=== PATIENT | female | born 1940 | race Caucasian/White ===

== ENCOUNTER → 2022-06-19 08:15 | Outpatient (CLI) | payer MEDICARE, SELFPAY ==
[2022-06-19 09:39] LABS: Add Manual Diff / Slide Review NO; Basophils Absolute Auto 100 /uL (0-100); Basophils Percent Auto 1.5 % (0-2); Eosinophils Absolute Auto 100 /uL (0-450); Eosinophils Percent Auto 2.6 % (2-4); Hematocrit 39.8 % (36-46); Hemoglobin 13.4 g/dL (12.0-16.0); Lymphocytes Absolute Auto 1700 /uL (1100-4500); Lymphocytes Percent Auto 31.9 % (25-40); Mean Corpuscular HGB Conc 33.7 % (30-36); Mean Corpuscular Hemoglobin 28.5 PG (26-34); Mean Corpuscular Volume 84.6 fL (80-100); Monocytes Absolute Auto 400 /uL (0-900); Monocytes Percent Auto 8.3 % (3-14); Neutrophils Absolute Auto 2900 /uL (1500-7000); Neutrophils Percent Auto 55.7 % (50-75); Platelet Count 184 X10^3/uL (150-400); Red Cell Distribution Width 14.7 % (11.6-14.8); White Blood Cell Count 5.2 X10^3/uL (4.5-11.0)
[2022-06-19 10:03] LABS: BUN Creatinine Ratio 26.3 (6-22); Blood Urea Nitrogen 21 mg/dL (7-17); Calcium 9.1 mg/dL (8.4-10.2); Carbon Dioxide 30 mmol/L (22-32); Chloride 103 mmol/L (98-107); Estimated Glomerular Filt Rate > 60 mL/min (>60); Glucose 90 mg/dL (80-110); HEMOLYSIS < 15 (0-50); Potassium 4.5 mmol/L (3.4-5.1); Sodium 139 mmol/L (137-145)
[2022-06-19 10:26] LABS: Appearance Urine UA CLEAR; Bilirubin Urine UA NEGATIVE (NEGATIVE); Color Urine UA YELLOW; Glucose Urine UA NEGATIVE (Negative); Ketones Urine UA NEGATIVE (NEGATIVE); Leukocyte Esterase Urine UA 2+ (NEGATIVE); Nitrite Urine UA NEGATIVE (Negative); Occult Blood Urine UA NEGATIVE (Negative); Protein Urine UA NEGATIVE (Negative); Urobilinogen Urine UA 0.2 E.U./dL (0.2)
[2022-06-19 11:08] LABS: Bacteria Urine Occasional (0-1); Culture Indicated Urine Specimen Cultured; RBC Urine 0-1/HPF (0-5/HPF); Squamous Epithelial Cell Urine 1-5 /HPF (0-5/HPF); Transitional Epi Cells Urine 1-5/HPF (0-5/HPF); WBC Urine 5-10/HPF (0-5/HPF)
[2022-06-20 05:32] LABS: x Labcorp Estim. Avg Glu (eAG) 117 mg/dL (.); x Labcorp Hemoglobin A1c 5.7 % (4.8-5.6)
== END ==
PROVIDERS: PCP Family Medicine; Referring Provider Orthopaedic Surgery; Visit Provider Orthopaedic Surgery
DX: Z01.818 Encounter for other preprocedural examination (principal); R73.9 Hyperglycemia, unspecified; Z01.812 Encounter for preprocedural laboratory examination; N39.0 Urinary tract infection, site not specified
CPT/HCPCS: 36415; 80048; 81001; 83036; 85025; 87086; 93005

== ENCOUNTER → 2023-09-24 08:18 | Outpatient (CLI) | payer MEDICARE, SELFPAY ==
[2023-09-24 08:55] LABS: Add Manual Diff / Slide Review NO; Basophils Absolute Auto 100 /uL (0-100); Basophils Percent Auto 1.4 % (0-2); Eosinophils Absolute Auto 200 /uL (0-450); Eosinophils Percent Auto 2.7 % (2-4); Hematocrit 40.7 % (36-46); Hemoglobin 13.6 g/dL (12.0-16.0); Lymphocytes Absolute Auto 2100 /uL (1100-4500); Lymphocytes Percent Auto 35.7 % (25-40); Mean Corpuscular HGB Conc 33.5 % (30-36); Mean Corpuscular Hemoglobin 28.6 PG (26-34); Mean Corpuscular Volume 85.2 fL (80-100); Monocytes Absolute Auto 500 /uL (0-900); Monocytes Percent Auto 7.9 % (3-14); Neutrophils Absolute Auto 3000 /uL (1500-7000); Neutrophils Percent Auto 52.3 % (50-75); Platelet Count 196 X10^3/uL (150-400); Red Blood Cell Count 4.78 X10^6/uL (4.0-5.2); Red Cell Distribution Width 14.8 % (11.6-14.8); White Blood Cell Count 5.8 X10^3/uL (4.5-11.0)
[2023-09-24 09:02] LABS: Hemoglobin A1C% w Est Avg Glu 5.3 % (4.0-6.0)
[2023-09-24 09:19] LABS: Alanine Aminotransferase 13 IU/L (<35); Albumin 4.4 g/dL (3.5-5.0); Albumin Globulin Ratio 2.2 (1.0-2.8); Alkaline Phosphatase 77 U/L (38-126); Aspartate Aminotransferase 21 IU/L (14-36); BUN Creatinine Ratio 24.4 (6-22); Bilirubin Total 0.6 mg/dL (0.2-1.3); Blood Urea Nitrogen 20 mg/dL (7-17); Calcium 9.4 mg/dL (8.4-10.2); Carbon Dioxide 28 mmol/L (22-32); Chloride 107 mmol/L (98-107); Cholesterol 262 mg/dL (140-199); Estimated Glomerular Filt Rate > 60 mL/min (>60); Glucose 95 mg/dL (80-110); HDL Cholesterol 63 mg/dL (40-60); HEMOLYSIS < 15 (0-50); LDL Cholesterol Calculated 155 mg/dL (<100); Potassium 4.3 mmol/L (3.4-5.1); Sodium 140 mmol/L (137-145); Total Protein 6.4 g/dL (6.3-8.2); Triglycerides 218 mg/dL (35-150)
== END ==
PROVIDERS: PCP Family Medicine; Referring Provider Family Medicine; Visit Provider Family Medicine
DX: A69.20 Lyme disease, unspecified (principal); R73.01 Impaired fasting glucose; E78.5 Hyperlipidemia, unspecified; I10 Essential (primary) hypertension; I20.89 Other forms of angina pectoris
CPT/HCPCS: 36415; 80053; 80061; 83036; 85025

== ENCOUNTER → 2023-10-02 08:05 | Outpatient (CLI) | payer MEDICARE, SELFPAY ==
--- NOTE | 2023-10-02 08:06 | DI.ECHO.S_ITS ---
[place] [facility]+ [facility] : : [address] : : [place] : : [id number] : : Phone: [phone] Echocardiogram Report + + :Name: GUILLAUME MERIDA Study Date: 10/02/2023 Height: 64 in : :[facility] ReadingLocation: Weight: 160 lb : : Gender: Female BSA: 1.8 m2 : :: 1940 Age: 82 yrs BP: 188/90 mmHg: :Reason For Study: ESSENTIAL HYPERTENSION, DYSPNEA ON EXERTION : :Ordering Physician: JOSEFA, : :CAITLIN Performed By: Thomas Vines : :Referring: CAITLIN RIVERO : + + Interpretation Summary 1. The left ventricular contractility is normal. Estimated ejection fraction is greater than 55% with no segmental wall motion abnormalities. Mild concentric left ventricular hypertrophy. No diastolic dysfunction. 2. The right ventricular contractility is normal. 3. Biatrial enlargement noted. The left ventricle and right ventricle are of normal size. 4. No significant valvular abnormalities noted. 5. No obvious cardiac shunts. 6. No obvious intracardiac masses nor thrombi. 7. No hemodynamically significant pericardial effusion. 8. Low normal right-sided filling pressures. Conclusion: Normal biventricular systolic function with no significant valvular abnormalities. Procedure: A two-dimensional transthoracic echocardiogram with color flow and Doppler was performed. The study quality was technically adequate. There is no prior echocardiogram noted for this patient. The heart rate ranged between 59-77 bpm during the study. Left Ventricle: The left ventricle is normal in size. Left ventricular wall thickness is mildly increased. The ejection fraction is estimated to be 55- 60%. Right Ventricle: The right ventricle is normal size. The right ventricular systolic function is normal. Atria: The left atrium is moderately dilated. The right atrium is mildly dilated. The interatrial septum grossly appears intact with no obvious evidence for an atrial septal defect. Mitral Valve: The mitral valve is normal. There is no mitral valve stenosis. There is trace mitral regurgitation. Aortic Valve: The aortic valve is trileaflet. There is no aortic valve stenosis. There is trace aortic regurgitation. Tricuspid Valve: The tricuspid valve is normal. There is no tricuspid stenosis. No tricuspid regurgitation. Pulmonic Valve: The pulmonic valve is not well visualized. There is no pulmonic valvular stenosis. There is no pulmonic valvular regurgitation. Great Vessels: The aortic root is normal size. The dimensions of the ascending aorta are normal. The IVC is of normal diameter and collapses greater than 50% with a sniff. This suggests a low right atrial pressure of 3 mm Hg. Pericardium/ Pleura There is no pericardial effusion. There is no pleural effusion. MMode/2D Measurements & Calculations LVIDd: 5.4 cm LVOT diam: 2.0 cm LVIDs: 3.7 cm Ao root diam: 2.9 cm FS: 31.4 % asc Aorta Diam: 2.9 cm IVSd: 1.3 cm Ao Arch Diam (Prox Trans): 2.2 cm LVPWd: 1.2 cm LV kraft. diameter/BSA (cm/m^2): 3.1 LV sys. diameter/BSA (cm/m^2): 2.1 LA A2 area: 24.5 cm2 RA long axis: 5.2 cm LA A4 area: 25.9 cm2 RA area: 18.0 cm2 LA length (vol): 6.5 cm RA vol: 52.4 ml LA vol: 82.8 ml RA : 29.5 ml/m2 LA vol index: 46.5 ml/m2 IVC diam: 1.4 cm RVD1 (basal): 3.5 cm RVD2 (mid): 2.8 cm TAPSE: 2.8 cm Doppler Measurements & Calculations Ao V2 max: 168.0 cm/sec LVOT Max Sergey: 121.6 cm/sec Ao V2 mean: 110.6 cm/sec LV V1 max P.9 mmHg Ao max P.3 mmHg LV V1 VTI: 28.5 cm Ao mean P.6 mmHg IRLANDA(I,D): 2.2 cm2 Ao V2 VTI: 40.8 cm IRLANDA(V,D): 2.3 cm2 sev ratio: 0.70 IRLANDA indexed to BSA (cm^2/m^2): 1.2 MV E max sergey: 122.1 cm/sec PA V2 max: 92.1 cm/sec MV A max esrgey: 121.6 cm/sec PA V2 mean: 64.5 cm/sec MV E/A: 1.0 PA mean P.8 mmHg Med Peak E' Sergey: 7.1 cm/sec PA pr(Accel): 51.6 mmHg E/E' med: 17.2 Lat Peak E' Sergey: 9.2 cm/sec E/E' lat: 13.3 E/e' average: 15.3 MV dec time: 0.22 sec SV(LVOT): 88.5 ml Reading Physician:
== END ==
PROVIDERS: PCP Family Medicine; Referring Provider Family Medicine; Visit Provider Family Medicine
DX: I10 Essential (primary) hypertension (principal); E78.5 Hyperlipidemia, unspecified; R06.09 Other forms of dyspnea
CPT/HCPCS: 93306

== ENCOUNTER → 2024-11-19 08:31 | Outpatient (CLI) | payer MEDICARE, SELFPAY ==
[2024-11-19 09:06] LABS: Hematocrit 40.8 % (36-46); Hemoglobin 13.6 g/dL (12.0-16.0); Mean Corpuscular HGB Conc 33.4 % (30-36); Mean Corpuscular Hemoglobin 28.3 PG (26-34); Mean Corpuscular Volume 84.8 fL (80-100); Platelet Count 178 X10^3/uL (150-400)
[2024-11-19 10:45] LABS: Alanine Aminotransferase 13 IU/L (<35); Albumin 4.2 g/dL (3.5-5.0); Albumin Globulin Ratio 1.9 (1.0-2.8); Alkaline Phosphatase 78 U/L (38-126); Blood Urea Nitrogen 25 mg/dL (7-17); Calcium 9.1 mg/dL (8.4-10.2); Carbon Dioxide 28 mmol/L (22-32); Chloride 107 mmol/L (98-107); Cholesterol 263 mg/dL (140-199); Estimated Glomerular Filt Rate > 60 mL/min (>60); Globulin 2.2 g/dL (1.7-4.1); Glucose 88 mg/dL (70-99); HDL Cholesterol 67 mg/dL (40-60); HEMOLYSIS < 15 (0-50); Potassium 4.6 mmol/L (3.4-5.1); Sodium 139 mmol/L (137-145); Total Protein 6.4 g/dL (6.3-8.2); Triglycerides 235 mg/dL (35-150)
[2024-11-19 11:16] LABS: TSH w/ Reflex to FT4 0.30 uIU/mL (0.47-4.68)
[2024-11-19 11:55] LABS: Free T4, Direct Thyroxine 1.18 ng/dL (0.78-2.19)
== END ==
PROVIDERS: PCP Family Medicine; Referring Provider Family Medicine; Visit Provider Family Medicine
DX: Z00.00 Encounter for general adult medical examination without abnormal findings (principal); E78.49 Other hyperlipidemia; I10 Essential (primary) hypertension; R73.01 Impaired fasting glucose
CPT/HCPCS: 36415; 80053; 80061; 84439; 84443; 85027